=== PATIENT | female | born 1955 | race African-American/Black ===

== ENCOUNTER 2019-06-15 07:22 | Day surgery (SDC) | payer BC ==
[2019-06-15] MEDS ORDERED: PROPOFOL 40 ML (08:24)
== END 2019-06-15 12:35 | disposition home or self-care (01) ==
LOC: GIL 07:22
DX: D13.2 Benign neoplasm of duodenum (principal); K29.50 Unspecified chronic gastritis without bleeding; E11.9 Type 2 diabetes mellitus without complications; I10 Essential (primary) hypertension; Z79.84 Long term (current) use of oral hypoglycemic drugs
CPT/HCPCS: 43239; 82962; 88305; 88312